=== PATIENT | female | born 2000 | race Two or more races ===

== ENCOUNTER 2022-08-21 16:07 | Emergency (ER) | payer SELFPAY ==
[~2022-08-21] VITALS: Ht 162.6 cm; Wt 63.0 kg
[2022-08-21 17:10] LABS: Basophils # (auto) 0 10 ^3/uL (0-0.2); Basophils % (auto) 0.2 % (0.0-2.0); Eosinophils # (auto) 0.1 10 ^3/uL (0-0.8); Eosinophils % (auto) 1.2 % (0.0-7.0); Hematocrit 45.1 % (36.0-46.0); Hemoglobin 15.2 g/dL (12.2-16.2); Lymphocytes # (auto) 1.1 10 ^3/uL (0.4-5.4); Lymphocytes % (auto) 9.6 % (10.0-50.0); Mean Corpuscular Hemoglobin 30.1 pg (28.0-32.0); Mean Corpuscular Hgb Conc. 33.7 g/dL (32.0-36.0); Mean Corpuscular Volume 89.5 fL (80.0-100.0); Monocytes # (auto) 0.7 10 ^3/uL (0-1.3); Monocytes % (auto) 6.1 % (0.0-12.0); Neutrophils # (auto) 9.8 10 ^3/uL (1.6-8.6); Neutrophils % (auto) 82.9 % (37.0-80.0); Red Blood Cells 5.04 10^6/uL (4.0-5.20); Red Cell Distribution Width 12.9 % (11.8-14.3); White Blood Cell 11.8 10^3/uL (4.4-10.8)
[2022-08-21 17:33] LABS: Albumin 4.5 g/dL (3.4-5.0); Calcium 8.9 mg/dL (8.5-10.1); Potassium 3.9 mmol/L (3.5-5.1)
[2022-08-21 17:35] LABS: BUN/Creatinine Ratio 7.5 (10.0-20.0); Bilirubin, Total 0.3 mg/dL (0.2-1.0); Total Protein 8.4 g/dL (6.4-8.2)
[2022-08-21] MEDS ORDERED: PSEU120T2 PO (17:40)
[2022-08-21] MEDS ORDERED: MELO-335 PO (17:40)
[2022-08-21] MEDS ORDERED: AMOX500C2 PO (18:36)
[2022-08-21 18:38] VITALS: BP 109/64
== END 2022-08-21 18:41 | disposition home or self-care (01) ==
LOC: EDBD 16:07 → ER 16:07
DX: S02.2XXA Fracture of nasal bones, initial encounter for closed fracture (principal); R10.2 Pelvic and perineal pain; V89.2XXA Person injured in unspecified motor-vehicle accident, traffic, initial encounter; Y93.89 Activity, other specified; Y92.89 Other specified places as the place of occurrence of the external cause; Y99.8 Other external cause status
CPT/HCPCS: 36415; 70450; 70486; 72125; 80053; 84702; 85025